=== PATIENT | male | born 1990 | race Caucasian/White ===

== ENCOUNTER 2019-06-08 10:11 | Emergency (ER) | payer OTHER ==
--- NOTE | 2019-06-08 10:26 | EDM.PDOC ---
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 He states that the pipes are very heavy. He complains of pain in the mid to lower left back, left hip pain and some mild lower abdominal pain. He states that the rope stopped him from being knocked off the rig. He denies any headache, neck pain or pain in his upper extremities. He grades his over all pain as a 3-4/10 and does not want any medications at this time. Last meal was 5:00 AM which was an egg sandwich. Onset: Sudden Location: Reports: Abdomen, Back, Lower Extremity, Left (hip) Quality: Reports: Ache, Throbbing Severity: Mild (to moderate back and left hip pain) Improves with: Reports: Rest Worsens with: Reports: Movement Middle Back Pain Score (Numeric/FACES): 8 - Related Data Allergies Allergy/AdvReac Type Severity Reaction Status Date / Time No Known Allergies Allergy Verified 06/08/19 10:17 Home Meds: Home Meds Ibuprofen [Motrin] 800 mg PO TID PRN 7 Days #21 tablet 06/08/19 [Rx] Methocarbamol [Robaxin-750] 750 mg PO TID PRN 7 Days #21 tablet 06/08/19 [Rx] Review of Systems - Review of Systems Review Of Systems: See Below Constitutional: Reports: No Symptoms Eyes: Reports: No Symptoms Ears: Reports: No Symptoms Nose: Reports: No Symptoms Mouth/Throat: Reports: No Symptoms Respiratory: Reports: No Symptoms Cardiovascular: Reports: No Symptoms GI/Abdominal: Reports: Abdominal Pain (mild lower abdominal pain) Genitourinary: Reports: No Symptoms Musculoskeletal: Reports: Back Pain, Other (left hip pain) Neurological: Reports: No Symptoms ED EXAM, GENERAL - Physical Exam Exam: See Below Exam Limited By: No Limitations General Appearance: Alert, WD/WN, No Apparent Distress Eye Exam: Bilateral Eye: EOMI, Normal Fundi, Normal Inspection, PERRL Ears: Normal External Exam, Normal Canal, Hearing Grossly Normal, Normal TMs Ear Exam: Bilateral Ear: Auricle Normal, Canal Normal, TM normal Nose: Normal Inspection, Normal Mucosa, No Blood Throat/Mouth: Normal Inspection, Normal Lips, Normal Teeth, Normal Gums, Normal Oropharynx, Normal Voice, No Airway Compromise Head: Atraumatic, Normocephalic Neck: Normal Inspection, Supple, Non-Tender, Full Range of Motion Respiratory/Chest: No Respiratory Distress, Lungs Clear, Normal Breath Sounds, No Accessory Muscle Use, Chest Non-Tender Cardiovascular: Normal Peripheral Pulses, Regular Rate, Rhythm Peripheral Pulses: 4+: Carotid (L), Carotid (R), Radial (L), Radial (R), Dorsalis Pedis (L), Dorsalis Pedis (R) GI/Abdominal: Normal Bowel Sounds, Soft, No Organomegaly, No Distention, No Mass , Tender (very mild tenderness noted in the lower abdomen). No: Guarding, Rigid , Rebound (Male) Exam: Deferred Rectal (Males) Exam: Deferred Back Exam: Muscle Spasm (noted at the level of T5-L3 left of the midline. Tenderness is noted over same.), Paraspinal Tenderness (along the T5-L4 left of the midline) Extremities: Normal Inspection, No Pedal Edema, Normal Capillary Refill, Other ( tenderness over the left hip. Increase pain with abduction of the left hip.). No: Joint Swelling Neurological: Alert, Oriented, CN II-XII Intact, Normal Cognition, Normal Gait, Normal Reflexes, No Motor/Sensory Deficits Skin Exam: Warm, Dry, Intact, Normal Color, No Rash Lymphatic: No Adenopathy Course - Vital Signs Text/Narrative:: I reviewed all of the patient imaging studies and his lab test. All imaging studies are neg for acute pathology. The patient is ambulatory without a limp of any kind. I told him that the radiologist had not read the left hip CT but that it appeared negative to me and that if there is a change in my reading we will notify him. He will be discharged. No work for 4 days. The patient agrees with the discharge plan. Last Recorded V/S: Last Vital Signs Temp 97.4 F 06/08/19 10:17 Pulse 61 06/08/19 11:38 Resp 15 06/08/19 11:38 BP 123/79 06/08/19 11:38 Pulse Ox 99 06/08/19 11:38 - Orders/Labs/Meds Orders: Active Orders 24 hr Category Date Time Status Hip wo Cont Lt [CT] Stat Exams 06/08/19 10:26 Taken Labs: Laboratory Tests 06/08/19 06/08/19 06/08/19 Range/Units 10:35 10:35 10:35 WBC 7.50 (4.0-11.0) K/uL RBC 4.90 (4.50-5.90) M/uL Hgb 14.9 (13.0-17.0) g/dL Hct 43.0 (38.0-50.0) % MCV 87.8 (80.0-98.0) fL MCH 30.4 (27.0-32.0) pg MCHC 34.7 (31.0-37.0) g/dL RDW Std Deviation 41.2 (28.0-62.0) fl RDW Coeff of Javy 13 (11.0-15.0) % Plt Count 205 (150-400) K/uL MPV 11.20 (7.40-12.00) fL Neut % (Auto) 64.0 (48.0-80.0) % Lymph % (Auto) 27.1 (16.0-40.0) % [place] % (Auto) 8.4 (0.0-15.0) % Eos % (Auto) 0.4 (0.0-7.0) % Baso % (Auto) 0.1 (0.0-1.5) % Neut # (Auto) 4.8 (1.4-5.7) K/uL Lymph # (Auto) 2.0 (0.6-2.4) K/uL [place] # (Auto) 0.6 (0.0-0.8) K/uL Eos # (Auto) 0.0 (0.0-0.7) K/uL Baso # (Auto) 0.0 (0.0-0.1) K/uL Nucleated RBC % 0.0 /100WBC Nucleated RBCs # 0 K/uL INR 1.01 Sodium 137 (136-148) mmol/L Potassium 4.2 (3.5-5.1) mmol/L Chloride 103 (98-107) mmol/L Carbon Dioxide 25.8 (21.0-32.0) mmol/L BUN 24 H (7.0-18.0) mg/dL Creatinine 1.0 (0.8-1.3) mg/dL Est Cr Clr Drug Dosing 110.88 mL/min Estimated GFR (MDRD) > 60.0 ml/min Glucose 91 (74-106) mg/dL Calcium 8.6 (8.5-10.1) mg/dL Total Bilirubin 0.8 (0.2-1.0) mg/dL AST 30 (15-37) IU/L ALT 35 (14-63) IU/L Alkaline Phosphatase 50 (46-116) U/L Total Protein 7.3 (6.4-8.2) g/dL Albumin 4.4 (3.4-5.0) g/dL Globulin 2.9 (2.6-4.0) g/dL Albumin/Globulin Ratio 1.5 (0.9-1.6) Urine Color Urine Appearance Urine pH (5.0-8.0) Ur Specific [place] (1.001-1.035) Urine Protein (NEGATIVE) mg/dL Urine Glucose (UA) (NEGATIVE) mg/dL Urine Ketones (NEGATIVE) mg/dL Urine Occult Blood (NEGATIVE) Urine Nitrite (NEGATIVE) Urine Bilirubin (NEGATIVE) Urine Urobilinogen (<2.0) EU/dL Ur Leukocyte Esterase (NEGATIVE) 06/08/19 Range/Units 11:30 WBC (4.0-11.0) K/uL RBC (4.50-5.90) M/uL Hgb (13.0-17.0) g/dL Hct (38.0-50.0) % MCV (80.0-98.0) fL MCH (27.0-32.0) pg MCHC (31.0-37.0) g/dL RDW Std Deviation (28.0-62.0) fl RDW Coeff of Javy (11.0-15.0) % Plt Count (150-400) K/uL MPV (7.40-12.00) fL Neut % (Auto) (48.0-80.0) % Lymph % (Auto) (16.0-40.0) % [place] % (Auto) (0.0-15.0) % Eos % (Auto) (0.0-7.0) % Baso % (Auto) (0.0-1.5) % Neut # (Auto) (1.4-5.7) K/uL Lymph # (Auto) (0.6-2.4) K/uL [place] # (Auto) (0.0-0.8) K/uL Eos # (Auto) (0.0-0.7) K/uL Baso # (Auto) (0.0-0.1) K/uL Nucleated RBC % /100WBC Nucleated RBCs # K/uL INR Sodium (136-148) mmol/L Potassium (3.5-5.1) mmol/L Chloride (98-107) mmol/L Carbon Dioxide (21.0-32.0) mmol/L BUN (7.0-18.0) mg/dL Creatinine (0.8-1.3) mg/dL Est Cr Clr Drug Dosing mL/min Estimated GFR (MDRD) ml/min Glucose (74-106) mg/dL Calcium (8.5-10.1) mg/dL Total Bilirubin (0.2-1.0) mg/dL AST (15-37) IU/L ALT (14-63) IU/L Alkaline Phosphatase (46-116) U/L Total Protein (6.4-8.2) g/dL Albumin (3.4-5.0) g/dL Globulin (2.6-4.0) g/dL Albumin/Globulin Ratio (0.9-1.6) Urine Color YELLOW Urine Appearance CLEAR Urine pH 5.0 (5.0-8.0) Ur Specific [place] 1.025 (1.001-1.035) Urine Protein NEGATIVE (NEGATIVE) mg/dL Urine Glucose (UA) NEGATIVE (NEGATIVE) mg/dL Urine Ketones NEGATIVE (NEGATIVE) mg/dL Urine Occult Blood NEGATIVE (NEGATIVE) Urine Nitrite NEGATIVE (NEGATIVE) Urine Bilirubin NEGATIVE (NEGATIVE) Urine Urobilinogen 0.2 (<2.0) EU/dL Ur Leukocyte Esterase NEGATIVE (NEGATIVE) Meds: Medications Discontinued Medications Generic Name Dose Route Start Last Admin Trade Name Freq PRN Reason Stop Dose Admin Cyclobenzaprine HCl 10 mg 06/08/19 13:35 Flexeril PO 06/08/19 13:36 ONETIME ONE Sodium Chloride 1,000 mls @ 1,000 mls/hr 06/08/19 10:31 06/08/19 10:43 Normal Saline IV 06/08/19 11:30 1,000 mls/hr .Bolus ONE Administration Ibuprofen 800 mg 06/08/19 13:35 Motrin PO 06/08/19 13:36 ONETIME ONE Iopamidol 100 ml 06/08/19 11:28 06/08/19 11:29 Isovue Multipack-370 (76%) IVPUSH 06/08/19 11:29 100 ml ONETIME ONE Administration Departure - Departure Time of Disposition: 13:42 Disposition: Home, Self-Care 01 Condition: Good Clinical Impression: Back contusion Qualifiers: Encounter type: initial encounter Laterality: left Qualified Code(s): S20.222A - Contusion of left back wall of thorax, initial encounter Contusion of left hip Qualifiers: Encounter type: initial encounter Qualified Code(s): S70.02XA - Contusion of left hip, initial encounter Blunt trauma of abdominal wall Qualifiers: Encounter type: initial encounter Qualified Code(s): S39.81XA - Other specified injuries of abdomen, initial encounter - Discharge Information *PRESCRIPTION DRUG MONITORING PROGRAM REVIEWED*: Yes *COPY OF PRESCRIPTION DRUG MONITORING REPORT IN PATIENT JENNIE: Yes Instructions: Contusion, [id number], Hip Pointer Referrals: PCP,None [Primary Care Provider] - Forms: ED Department Discharge, ED Return to Work/School Form Additional Instructions: Take all medications as directed. Follow up with your PCP in the next two to four days. Cold compresses to all injured areas for the next two days (30 minutes on and one hour off while awake). No work for the next 4 days. You will feel worse in the morning due to the nature of your injury. Rest for the next 24 hours. Return to the ED if your condition gets worse or should you have any questions or concerns. The following information is given to patients seen in the emergency department who are being discharged to home. This information is to outline your options for follow-up care. We provide all patients seen in our emergency department with a follow-up referral. The need for follow-up, as well as the timing and circumstances, are variable depending upon the specifics of your emergency department visit. If you don't have a primary care physician on staff, we will provide you with a referral. We always advise you to contact your personal physician following an emergency department visit to inform them of the circumstance of the visit and for follow-up with them and/or the need for any referrals to a consulting specialist. The emergency department will also refer you to a specialist when appropriate. This referral assures that you have the opportunity for follow-up care with a specialist. All of these measure are taken in an effort to provide you with optimal care, which includes your follow-up. Under all circumstances we always encourage you to contact your private physician who remains a resource for coordinating your care. When calling for follow-up care, please make the office aware that this follow-up is from your recent emergency room visit. If for any reason you are refused follow-up, please contact the [facility] Emergency Department at and asked to speak to the emergency department charge nurse. Sepsis Event Note - Focused Exam Vital Signs: Vital Signs Temp Pulse Resp BP Pulse Ox 06/08/19 11:38 61 15 123/79 99 06/08/19 10:40 70 14 118/79 99 06/08/19 10:25 70 14 133/89 99 06/08/19 10:17 97.4 F 89 16 133/82 98 06/08/19 10:11 89 16 133/82 98 Date Exam was Performed: 06/08/19 Time Exam was Performed: 13:39 - My Orders Last 24 Hours: My Active Orders 06/08/19 10:26 Hip wo Cont Lt [CT] Stat - Assessment/Plan Last 24 Hours: My Active Orders 06/08/19 10:26 Hip wo Cont Lt [CT] Stat
[2019-06-08] MEDS ORDERED: Sodium Chloride 0.9% 1,000 ML IV ONE (10:31)
[2019-06-08 11:09] LABS: BLOOD UREA NITROGEN,BUN 24 mg/dL (7.0-18.0); CARBON DIOXIDE,CO2 25.8 mmol/L (21.0-32.0); CHLORIDE,CL 103 mmol/L (98-107); GLUCOSE RANDOM 91 mg/dL (74-106); POTASSIUM,K 4.2 mmol/L (3.5-5.1); SODIUM,NA 137 mmol/L (136-148)
[2019-06-08] MEDS ORDERED: Iopamidol 755 MG/ML 200 ML Multipack Bottle IVPUSH ONE (11:28)
--- NOTE | 2019-06-08 11:59 | CT ---
CT abdomen and pelvis Technique: Multiple axial sections were obtained from above the dome of the diaphragm inferiorly through the pubic symphysis. Intravenous contrast was utilized. No oral contrast has been given. Findings: Mild intrahepatic biliary duct dilatation is seen. Gallbladder shows no calcified gallstones. No extrahepatic biliary duct dilatation is appreciated. Pancreas shows no discrete abnormality. Adrenal glands show no nodule. Kidneys show symmetric contrast enhancement without hydronephrosis or mass. Spleen appears within normal limits. Aorta shows no aneurysm. No retroperitoneal adenopathy or mesenteric abnormalities are seen. No pelvic mass or adenopathy is seen. No free fluid or inflammatory change is identified. Appendix is seen and is normal in size. Visualized lung bases show nothing acute. Impression: 1. Mild intrahepatic biliary duct dilatation with no extrahepatic duct dilatation or calcified gallstones. This finding is most likely incidental but please correlate that patient has no abnormal biliary enzymes. 2. Nothing acute is otherwise seen on CT study of the abdomen and pelvis. Diagnostic code #2 This report was dictated in [place] Standard Time
--- NOTE | 2019-06-08 12:04 | CT ---
CT chest Technique: Multiple axial sections through the chest were obtained. Intravenous contrast was utilized. Comparison: No prior chest imaging. Findings: No pericardial thickening is seen. Aorta shows no aneurysm. No mediastinal fluid is seen. No axillary adenopathy is noted. Lungs are clear with no acute parenchymal change. No pleural effusions are seen. No pneumothorax is identified. Bone window settings were reviewed which shows no discrete rib abnormality. Impression: 1. Nothing acute is appreciated on CT study of the chest. Diagnostic code #1 This report was dictated in [place] Standard Time
--- NOTE | 2019-06-08 12:09 | CT ---
CT lumbar spine Technique: Multiple axial sections through the lumbar spine were obtained. Reconstructed coronal and sagittal images were reviewed. Findings: Vertebral body heights and disc spaces are maintained. Slight posterior disc space narrowing is noted at L4-5 and L5-S1. Mild anterior osteophytes are noted at L4-5. No fracture is appreciated. No subluxation is seen. Slight circumferential disc bulge is noted at L4-5 with mild asymmetric disc protrusion to the left of midline. 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 Impression: 1. Slight degenerative change as noted above. Developmental anomaly as noted above. 2. Nothing acute is appreciated on CT study of the lumbar spine. Diagnostic code #2 This report was dictated in [place] Standard Time
--- NOTE | 2019-06-08 12:09 | CT ---
CT thoracic spine Technique: Multiple axial sections were obtained through the thoracic spine. Reconstructed coronal and sagittal images were obtained. Findings: Vertebral body heights are maintained. Mild scattered disc space narrowing is seen within the thoracic spine. Mild Schmorl node deformities are seen. No discrete fracture is appreciated. No abnormal subluxation is seen. Impression: 1. Minimal degenerative change and Schmorl node deformities. 2. Nothing acute is appreciated on CT study of the thoracic spine. Diagnostic code #2 This report was dictated in [place] Standard Time
[2019-06-08] MEDS ORDERED: Cyclobenzaprine 10 MG Tab PO ONE (13:35)
[2019-06-08] MEDS ORDERED: Ibuprofen 800 MG Tab PO ONE (13:35)
--- NOTE | 2019-06-10 12:49 | CT ---
EXAM DATE: 06/08/19 PATIENT'S AGE: 28 CT left hip Technique: Multiple axial sections through the left hip were obtained. Reconstructed coronal and sagittal images were reviewed. Findings: Joint space within the left hip is preserved. No fracture is appreciated. No surrounding muscle abnormalities are appreciated. Impression: 1. No abnormality is appreciated on CT study of the left hip. Diagnostic code #1 This report was dictated in [place] Standard Time Report Signed by Proxy. [facility]
== END 2019-06-08 14:03 | disposition home or self-care (01) ==
LOC: MW.ED 10:11
DX: S70.02XA Contusion of left hip, initial encounter (principal); S20.222A Contusion of left back wall of thorax, initial encounter; S39.81XA Other specified injuries of abdomen, initial encounter; W22.8XXA Striking against or struck by other objects, initial encounter; Y99.0 Civilian activity done for income or pay
CPT/HCPCS: 36415; 71260; 73700; 74177; 80053; 81003; 85025; 85610; 96360; 99284; A9270; J7030; Q9967; 72128-26; 72131-26